=== PATIENT | female | born 1990 | race Hispanic/Latino ===

== ENCOUNTER 2019-05-08 17:02 | Inpatient (IN) ==
[2019-05-08] MEDS ORDERED: LR 1,000 ML ONE (17:32)
[2019-05-08] MEDS ORDERED: LR 1,000 ML IV SCH ×2 (17:45→18:45)
[2019-05-08] MEDS ORDERED: AMPICILLIN 2 GM/NS 2 GM/100 ML IVPB IV ONE (17:46)
[2019-05-08 17:47] LABS: URINE SOURCE VOIDED
[2019-05-08 17:48] LABS: BASO# 0.01 X1000 (0.0-0.2); BASO% 0.1 % (0.0-0.8); EOS# 0.01 X1000 (0.0-0.7); EOS% 0.1 % (0.0-10.0); HEMATOCRIT 30.3 % (37.0-47.0); HEMOGLOBIN 10.2 g/dL (12.0-16.0); IMM GRAN# 0.02 X1000 (0.0-0.04); IMM GRAN% 0.3 % (0.0-0.5); LYMPH# 1.47 X1000 (1.2-3.4); LYMPH% 18.8 % (20.5-51.1); MCH 31.6 PG (27-31); MCHC 33.7 g/dL (33-37); MCV 93.8 FL (81-99); MONO% 5.1 % (1.7-9.3); MPV 11.7 FL (7.4-10.4); NEUT# 5.93 X1000 (1.4-6.5); NEUT% 75.6 % (42.2-75.2); PLT 225 X1000 (130-400); RBC 3.23 XMIL (4.2-5.4); RDW 12.7 % (11.5-14.5); WBC 7.84 X1000 (4.8-10.8)
[2019-05-08] MEDS ORDERED: XYLOCAINE-MPF 1% INJ PRN ×2 (17:56→23:36)
[2019-05-08] MEDS ORDERED: MINERAL OIL ONE (17:57)
[2019-05-08 18:10] LABS: BILIRUBIN URINE NEGATIVE (NEGATIVE); BLOOD URINE NEGATIVE (NEGATIVE); CLARITY CLEAR (CLEAR); COLOR YELLOW; GLUCOSE URINE NEGATIVE (NEGATIVE); KETONE URINE NEGATIVE (NEGATIVE); LEUKOCYTES URINE NEGATIVE (NEGATIVE); NITRITE URINE NEGATIVE (NEGATIVE); PROTEIN URINE NEGATIVE (NEGATIVE); UROBILINOGEN URINE NORMAL
[2019-05-08 18:20] LABS: RAPID HIV PRESUMPTIVE NEGATIVE
[2019-05-08] MEDS: STADOL IV PRN ×3 (18:40→23:38)
[2019-05-08] MEDS ORDERED: KEFZOL 1 GM/D5W 1 GM/50 ML IVPB IV PRN (18:41)
[2019-05-08] MEDS ORDERED: PEPCID IV PRN (18:41)
[2019-05-08] MEDS ORDERED: ZOFRAN IV PRN (18:41)
[2019-05-08] MEDS ORDERED: PEPCID PO ONE (18:41)
[2019-05-08] MEDS ORDERED: REGLAN PO ONE (18:41)
[2019-05-08] MEDS ORDERED: PEPCID PO PRN (18:41)
[2019-05-08] MEDS ORDERED: LR 500 ML IV ONE (18:41)
[2019-05-08] MEDS ORDERED: TYLENOL PO PRN (18:41)
[2019-05-08] MEDS ORDERED: SODIUM CHLORIDE 0.9% INJ SCH (18:45)
[2019-05-08] MEDS ORDERED: PITOCIN 30 UNITS/NS 30 UNIT/500 ML IV.SOLN IV SCH ×2 (18:45→23:45)
--- NOTE | 2019-05-08 19:07 | Diag Imaging Result Doc PS360 ---
US OBS COMPLETE > 14 WKS - 05/08/2019 INDICATION: unknown gestation, no care TECHNIQUE: COMPARISON: None FINDINGS: There is a single intrauterine . Positioning is cephalic. Estimated gestational age is 35 weeks one day +/- 17 days. Estimated delivery date is 06/11/2019. Amniotic fluid index is about 8.0. The cervix is closed. Placenta is anterior and appears normal. The placenta is grade 3. Maternal structures are normal. cardiac activity is 160 bpm. There is normal anatomy including head and intracranial contents, spine, extremities, four-chamber heart, diaphragms, kidneys, stomach, urinary bladder, three-vessel cord and cord insertion. IMPRESSION: Advanced intrauterine with no complication. Electronically signed by Meet Lockhart 05/08/2019 7:05 PM
[2019-05-08] MEDS ORDERED: AMPICILLIN 1 GM/NS 1 GM/50 ML IVPB IV SCH (21:46)
[2019-05-08 22:46] LABS: RUBELLA SCREEN NON IMMUNE (IMMUNE)
[2019-05-08] MEDS ORDERED: BENADRYL IV PRN (23:36)
[2019-05-08] MEDS ORDERED: HYDROXYZINE IM PRN (23:36)
[2019-05-08] MEDS ORDERED: AMBIEN PO PRN (23:36)
[2019-05-08] MEDS ORDERED: M-M-R II VACCINE SUBQ ONE (23:36)
[2019-05-08] MEDS ORDERED: MINERAL OIL PO PRN (23:36)
[2019-05-08] MEDS ORDERED: PITOCIN IM PRN (23:36)
[2019-05-08] MEDS ORDERED: CYTOTEC PO PRN (23:36)
[2019-05-08] MEDS ORDERED: PERI MEDS (DERMOPLAST/NUPERCAINAL/TUCKS) MISC PRN (23:36)
[2019-05-08] MEDS ORDERED: BOOSTRIX VACCINE IM ONE (23:36)
[2019-05-08] MEDS ORDERED: ATARAX PO PRN (23:36)
[2019-05-08] MEDS ORDERED: NORCO-10 PO PRN (23:36)
[2019-05-08] MEDS ORDERED: NORCO-5 PO PRN (23:36)
[2019-05-08] MEDS ORDERED: BENADRYL PO PRN (23:36)
--- NOTE | 2019-05-08 23:37 | HISTORY AND PHYSICAL ---
HISTORY OF PRESENT ILLNESS: The patient is a 29-year-old female, G5, P4, who presents to labor and delivery with complaints of uterine contractions. The patient has not had care this . She has had 4 prior vaginal deliveries and all of them were in [facility]. PAST MEDICAL HISTORY: Unremarkable. PAST SURGICAL HISTORY: None. PAST OBSTETRICAL HISTORY: G5, P4; spontaneous vaginal delivery x4. GYNECOLOGICAL HISTORY: Menarche at age 12. FAMILY HISTORY: Unremarkable. REVIEW OF SYSTEMS: All systems reviewed and noncontributory. SOCIAL HISTORY: Tobacco use: None. Alcohol use: None. MEDICATIONS: vitamins occasionally. ALLERGIES: No known drug allergies. PHYSICAL EXAMINATION: GENERAL: Height 4 feet 10 inches, weight 127 pounds. VITAL SIGNS: Temperature 97.8 degrees, blood pressure 112/78, pulse of 83, respirations 20. heart rate in the 140s, with [id number] variability noted. HEENT: Pupils equal, round and reactive to light and accommodation. Extraocular movements intact. Oropharynx clear. NECK: Supple. No thyromegaly. LUNGS: Clear to auscultation. HEART: Regular rate and rhythm. ABDOMEN: Gravid. Ultrasound performed at bedside showed a vertex presentation. PELVIS: On cervical examination, cervix was 5 cm, 50% effaced and -3 station, with intact membranes and vertex presentation. EXTREMITIES: No clubbing, cyanosis or edema noted. NEUROLOGIC: Cranial nerves 2-12 grossly intact. Motor 5 out of 5. DIAGNOSTIC DATA: Ultrasound was performed and this showed a fetus at 35 weeks and 1 day, in vertex presentation with a mature grade 3 placenta. No physical anomalies were noted on ultrasound. LABORATORY DATA: Hemoglobin was 10.2, hematocrit 30.3, platelet count 225,000. Glucose was 94. RPR was nonreactive. HIV was negative and rubella was nonimmune. ASSESSMENT AND PLAN: A 29-year-old, 5, para 4, roughly 35 weeks gestation in active labor. Patient with no care. labs obtained. We will start intravenous ampicillin for group B streptococcus prophylaxis due to unknown status. Anticipate vaginal delivery. cc: Nba Alberto III, MD
[2019-05-08] MEDS ORDERED: PITOCIN 20 UNITS/NS 20 UNITS/1,000 ML IV.SOLN IV SCH (23:45)
--- NOTE | 2019-05-09 02:48 | OPERATIVE NOTE ---
PROCEDURE DATE: 05/08/2019 DELIVERY NOTE: Patient progressed to complete and pushing. Had spontaneous vaginal delivery of a female , 6 pounds 2 ounces with 's of 8 and 9 at 2324 hours on 05/08/2019 over an intact perineum. Placenta was delivered intact with 3 vessel cord. ESTIMATED BLOOD LOSS: 150 mL. ANESTHESIA: None. COUNTS: All counts were correct x2. cc: Nba Alberto III, MD
[2019-05-09 05:37] LABS: BASO# 0.01 X1000 (0.0-0.2); BASO% 0.1 % (0.0-0.8); HEMATOCRIT 31.6 % (37.0-47.0); HEMOGLOBIN 10.4 g/dL (12.0-16.0); IMM GRAN# 0.04 X1000 (0.0-0.04); IMM GRAN% 0.3 % (0.0-0.5); LYMPH# 1.72 X1000 (1.2-3.4); LYMPH% 11.8 % (20.5-51.1); MCH 31.3 PG (27-31); MCHC 32.9 g/dL (33-37); MCV 95.2 FL (81-99); MONO# 0.79 X1000 (0.11-0.59); MONO% 5.4 % (1.7-9.3); MPV 11.6 FL (7.4-10.4); NEUT# 11.98 X1000 (1.4-6.5); NEUT% 82.4 % (42.2-75.2); PLT 202 X1000 (130-400); RBC 3.32 XMIL (4.2-5.4); RDW 12.8 % (11.5-14.5); WBC 14.54 X1000 (4.8-10.8)
--- NOTE | 2019-05-09 09:00 | OB/GYN PROGRESS NOTE ---
Progress Note OB - . OB Progress Note: Vital Signs - 24 hr 05/08/19 18:21 05/08/19 19:00 05/08/19 20:46 Temperature 97.8 F 97.9 F Pulse Rate 83 83 80 Respiratory Rate 20 16 16 Blood Pressure 112/78 115/71 102/66 O2 Sat by Pulse Oximetry 100 97 99 Laboratory Results - last 24 hr 05/08/19 05/08/19 05/08/19 17:30 17:30 17:30 WBC 7.84 RBC 3.23 L Hgb 10.2 L Hct 30.3 L MCV 93.8 MCH 31.6 H MCHC 33.7 RDW Std Deviation 12.7 Plt Count 225 MPV 11.7 H Immature Gran % (Auto) 0.3 Neut % (Auto) 75.6 H Lymph % (Auto) 18.[address] [place] % (Auto) 5.1 Eos % (Auto) 0.1 Baso % (Auto) 0.1 Immature Gran # (Auto) 0.02 Neut # (Auto) 5.93 Lymph # (Auto) 1.47 [place] # (Auto) 0.40 Eos # (Auto) 0.01 Baso # (Auto) 0.01 Glucose 94 Urine Source VOIDED Urine Color YELLOW Urine Clarity CLEAR Urine pH 7.0 Ur Specific [place] 1.000 Urine Protein NEGATIVE Urine Ketones NEGATIVE Urine Blood NEGATIVE Urine Nitrite NEGATIVE Urine Bilirubin NEGATIVE Urine Urobilinogen NORMAL Urine WBC NEGATIVE Urine Glucose NEGATIVE RPR HIV 1&2 Antibody Rapid Rubella Immunity Screen Blood Type Antibody Screen 05/08/19 05/08/19 05/08/19 17:30 17:30 17:30 WBC RBC Hgb Hct MCV MCH MCHC RDW Std Deviation Plt Count MPV Immature Gran % (Auto) Neut % (Auto) Lymph % (Auto) [place] % (Auto) Eos % (Auto) Baso % (Auto) Immature Gran # (Auto) Neut # (Auto) Lymph # (Auto) [place] # (Auto) Eos # (Auto) Baso # (Auto) Glucose Urine Source Urine Color Urine Clarity Urine pH Ur Specific [place] Urine Protein Urine Ketones Urine Blood Urine Nitrite Urine Bilirubin Urine Urobilinogen Urine WBC Urine Glucose RPR NON-REACTIVE HIV 1&2 Antibody Rapid PRESUMPTIVE NEGATIVE Rubella Immunity Screen NON IMMUNE H Blood Type O POSITIVE Antibody Screen NEGATIVE 05/09/19 05:18 WBC 14.54 H RBC 3.32 L Hgb 10.4 L Hct 31.6 L MCV 95.2 MCH 31.3 H MCHC 32.9 L RDW Std Deviation 12.8 Plt Count 202 MPV 11.6 H Immature Gran % (Auto) 0.3 Neut % (Auto) 82.4 H Lymph % (Auto) 11.[address] [place] % (Auto) 5.4 Eos % (Auto) 0.0 Baso % (Auto) 0.1 Immature Gran # (Auto) 0.04 Neut # (Auto) 11.98 H Lymph # (Auto) 1.72 [place] # (Auto) 0.79 H Eos # (Auto) 0.00 Baso # (Auto) 0.01 Glucose Urine Source Urine Color Urine Clarity Urine pH Ur Specific [place] Urine Protein Urine Ketones Urine Blood Urine Nitrite Urine Bilirubin Urine Urobilinogen Urine WBC Urine Glucose RPR HIV 1&2 Antibody Rapid Rubella Immunity Screen Blood Type Antibody Screen PPD#1 s/p [employer] - Uncomplicated. Armand reg diet, ambulating, decreased libido, No leg pain, SOB, CP VSS AF Gen - Pt in no apparent distress A&O x 3 ABD - soft, NT, ND, FF Extrem - no CCE A/p - PPD#1 Cont PP care
[2019-05-09] MEDS ORDERED: PITOCIN ONE (09:37)
[2019-05-09 19:05] LABS: HIV ANTIBODY SCREEN SEE COMMENTS
[2019-05-09] MEDS: PERICOLACE PO SCH (22:36)
[2019-05-09] MEDS: MOTRIN PO PRN (22:38)
[2019-05-10] MEDS: MOTRIN PO PRN ×3 (07:56→23:52)
--- NOTE | 2019-05-10 09:48 | OB/GYN PROGRESS NOTE ---
Progress Note OB - . Patient Problems: Current Active Problems Problem Status Onset Active labor Acute OB Progress Note: Vital Signs - 24 hr 05/09/19 12:46 05/09/19 16:17 05/09/19 19:50 Temperature 97.9 F 98.2 F 96.8 F L Pulse Rate 65 63 58 L Respiratory Rate 18 18 16 Blood Pressure 101/63 101/62 112/66 O2 Sat by Pulse Oximetry 100 100 99 05/09/19 23:45 05/10/19 07:40 Temperature 97.2 F L 96.7 F L Pulse Rate 69 67 Respiratory Rate 16 18 Blood Pressure 105/68 112/74 O2 Sat by Pulse Oximetry 99 100 Laboratory Results - last 24 hr 05/08/19 18:20 HIV 1&2 Antibody Screen SEE COMMENTS PPD 2 without difficulty. Pt is without complaints. Fundus is firm and nontender. No calf tenderness. NL amt lochia. A/P: Stable. Pt will not be discharged till tomorrow. Mom will be discharged tomorrow with baby.
[2019-05-10 10:05] LABS: HEPATITIS B SURFACE ANTIGEN SEE COMMENTS
[2019-05-10 11:47] LABS: UR AMPHETAMINES QUAL NONE DETECTED (NONE DETECT); UR BARBITUATES QUAL NONE DETECTED (NONE DETECT); UR BENZODIAZEPIN QUAL NONE DETECTED (NONE DETECT); UR CANNABINOIDS QUAL NONE DETECTED (NONE DETECT); UR COCAINE QUAL NONE DETECTED (NONE DETECT); UR METHADONE QUAL NONE DETECTED (NONE DETECT); UR METHAMPHETAMINE QUAL NONE DETECTED (NONE DETECT); UR OPIATES QUAL NONE DETECTED (NONE DETECT); UR OXYCODONE QUAL NONE DETECTED (NONE DETECT); UR PCP QUAL NONE DETECTED (NONE DETECT); UR PROPOXYPHENE QUAL NONE DETECTED (NONE DETECT); UR TCA QUAL NONE DETECTED (NONE DETECT)
[2019-05-10] MEDS: PERICOLACE PO SCH (23:52)
[2019-05-11 08:42] VITALS: BP 109/66
--- NOTE | 2019-05-11 09:11 | OB/GYN PROGRESS NOTE ---
Progress Note OB - . Patient Problems: Current Active Problems Problem Status Onset Active labor Acute OB Progress Note: Vital Signs - 24 hr 05/10/19 11:10 05/10/19 15:05 05/10/19 23:55 Temperature 97.1 F L 96.5 F L 98.4 F Pulse Rate 58 L 56 L 59 L Respiratory Rate 18 18 16 Blood Pressure 89/57 104/62 137/72 O2 Sat by Pulse Oximetry 99 100 99 05/11/19 08:40 Temperature 96.5 F L Pulse Rate 61 Respiratory Rate 20 Blood Pressure 109/66 O2 Sat by Pulse Oximetry 100 Laboratory Results - last 24 hr 05/08/19 05/08/19 17:00 17:30 Urine Opiates Screen NONE DETECTED Ur Oxycodone Screen NONE DETECTED Urine Methadone Screen NONE DETECTED U Propoxyphene Qual NONE DETECTED Ur Barbituates Screen NONE DETECTED Ur Tricyclics Screen NONE DETECTED Ur Phencyclidine Scrn NONE DETECTED Ur Amphetamines Screen NONE DETECTED U Methamphetamines Scrn NONE DETECTED U Benzodiazepines Scrn NONE DETECTED Urine Cocaine Screen NONE DETECTED U Cannabinoids Screen NONE DETECTED Hep Bs Antigen SEE COMMENTS Pt doing well pain controlled bottlefeeding minimal lochia unsure about control vital as above Gen: AAOx3 NAD CV: RRR no g/m/r Lungs: CTAB no w/r/r Abd +BS soft NT/ND fundus firm at u-2 Ext: no c/c/e A: PPD#3 s/p P: D/C home
== END 2019-05-11 11:15 | disposition home or self-care (01) | DRG 807 ==
LOC: P.OPLD 17:02 → P.LD 17:11
PROVIDERS: ADMIT Obstetrics & Gynecology; ATTEND Obstetrics & Gynecology
CPT/HCPCS: 59025; 76805; 76815; 80104; 80301; 80305; 81003; 82947; 85025; 86592; 86701; 86703; 86762; 86850; 86900; 86901; 87340; 87389; 87390; 90707; 90715; A9270; G0431; G0434; G0477; J0290; J0595; J2405; J2590; J7120